=== PATIENT | male | born 1950 | race Caucasian/White ===

== ENCOUNTER 2019-05-18 17:13 | Observation (INO) | payer MEDICARE ==
[~2019-05-18] VITALS: Ht 185.4 cm; Wt 102.4 kg
--- NOTE | 2019-05-18 17:15 | NUR ---
This RN received report from ED Nurse at [facility].
[2019-05-18 20:11] VITALS: BP 117/75
[2019-05-18 20:13] VITALS: BP 117/75
[2019-05-18] MEDS ORDERED: ONDANSETRON 4 MG/2 ML (SDV) Z0FRAN IV PRN (20:45)
[2019-05-18] MEDS ORDERED: MELATONIN 3 MG TABLET PO PRN (20:45)
[2019-05-18] MEDS ORDERED: ANTACID SUSP 30 ML UDC (MYLANTA) PO PRN (20:45)
[2019-05-18] MEDS ORDERED: PATIENT MAY USE OWN MEDS, ALL MC SCH (20:45)
[2019-05-18] MEDS ORDERED: ACETAMINOPHEN 325 MG TABLET PO PRN (20:45)
[2019-05-18] MEDS: BENZONATATE 100 MG (TESSALON) CAPSULE PO PRN (21:34)
[2019-05-18 22:00] VITALS: BP 117/75
[2019-05-19] VITALS (7 sets, daily range): BP systolic 93–115; BP diastolic 52–66
[2019-05-19 06:43] LABS: HEMOGLOBIN 9.5 G/DL (13.3-17.7); MEAN PLATELET VOLUME 10.2 FL (7.4-10.4); RED CELL DISTRIBUTION WIDTH 14.5 % (10.0-14.5); WHITE BLOOD COUNT 5.4 10^3/uL (4.3-11.0)
[2019-05-19 06:51] LABS: INR 1.3 (0.8-1.4); PROTHROMBIN TIME PATIENT 16.4 SEC (12.2-14.7)
[2019-05-19 07:03] LABS: ALBUMIN 2.4 GM/DL (3.2-4.5); CALCIUM 8.2 MG/DL (8.5-10.1); CREATININE SERUM 1.74 MG/DL (0.60-1.30); POTASSIUM 4.2 MMOL/L (3.6-5.0); TOTAL PROTEIN 5.3 GM/DL (6.4-8.2)
[2019-05-19] MEDS ORDERED: REGADENOSON 0.4 MG/5 ML SYR (LEXISCAN) IV ONE (07:30)
[2019-05-19] MEDS ORDERED: OMEP40CA27 PO (10:03)
[2019-05-19] MEDS ORDERED: FOLI1TAB24 PO (10:03)
[2019-05-19] MEDS ORDERED: CARV6.252 PO (10:03)
[2019-05-19] MEDS ORDERED: LACT10SO PO (10:03)
[2019-05-19] MEDS ORDERED: ACET-2267 PO (10:03)
[2019-05-19] MEDS ORDERED: BUME1TAB8 PO (10:03)
[2019-05-19] MEDS ORDERED: SPIR50TA4 PO (10:03)
[2019-05-19] MEDS ORDERED: DIPH25TA65 PO (10:03)
--- NOTE | 2019-05-19 10:06 | NUR ---
SPOKE WITH THE PATIENT AND FAMILY ABOUT MEDICATIONS. THEY HAD A LIST AND I COMPARED IT WITH THE EXT MED HX. HIS COREG WAS FILLED 6.25MG BID #180 07-23-18 - HE STATES HE TAKES 1/2 TAB BID HOWEVER FAMILY STATES HE NORMALLY ONLY TAKES IT 1/2 TAB IN AM. HE IS PAST DUE FOR REFILL ON THE BUMEX 1MG FILLED #90 01-26-19 ACCORDING TO THE EXT MED HX BUT THEY STATE HE DOES HAVE IT AND IS TAKING IT DAILY. HE STATES HE HAS SUPPLIES BUILT UP FROM GETTING IT MAIL ORDER IN THE PAST. HE STATES HE IS NO LONGER TAKING THE VITAMIN D, IT WAS RECENTLY DISCONTINUED. OTC MEDS: TYLENOL 500MG 1-2 Q6H PRN BENADRYL 25MG 1/2 TO 1 HS PRN
--- NOTE | 2019-05-19 11:32 | History & Physical-Hospitalist ---
History of Present Illness HPI/Chief Complaint patient is 69-year-old male past medical history of end-stage liver disease, chronic kidney disease, coronary artery disease who presented to the emergency department at [facility] due to altered mental status. He is a rambling historian and cannot give exact details of his history but his and daughter are at bedside. Reportedly he had had a lesion removed from his nose last week and possibly another surgical intervention though I'm not sure. Ever since then he has had increasing confusion. His states that he would call people at all hours of the night and attempted to get up and go fishing in the middle of the night as well. He becomes very upset when she tries to reorient hi He has had similar episodes with high ammonia levels so he was brought to the emergency room for evaluation. His ammonia level was in the 40s yesterday. He was transferred here for further evaluation of altered mentation. This morning his states that he is closer to his baseline but is still not 100 percent. We did discuss goals of care and patient reports he knows curative options are not possible and he would like to focus on symptom management. We did discuss hospice but he declined. Source: patient Date Seen 05/19/19 Time Seen by a Provider: 11:27 Attending Physician Inés Tomlinson MD PCP Efraín Lombardi MD Referring Physician Date of Admission May 18, 2019 at 19:43 Home Medications & Allergies Home Medications Reviewed patient Home Medication Reconciliation performed by pharmacy medication reconciliations biomedical equipment technician and/or nursing. Patients Allergies have been reviewed. Allergies Allergies Coded Allergies No Known Drug Allergies (Unverified05/18/19) Past Ntroqte-Xepbam-Tlzvqu Hx Past Med/Social Hx: Reviewed Nursing Past Med/Soc Hx Patient Social History Marrital Status: Employed/Student: retired Alcohol Use: Denies Use Recreational Drug Use: No Smoking Status: Never a Smoker Physical Abuse Screen: No Sexual Abuse: No Recent Foreign Travel: No Contact w/other who traveled: No Recent Hopitalizations: Yes Recent Infectious Disease Expo: No Immunizations Up To Date Pediatric: No Date of Pneumonia Vaccine: May 19, 2017 Date of Influenza Vaccine: Feb 16, 2019 Seasonal Allergies Seasonal Allergies: No Past Medical History Cardiac: Coronary Artery Disease, Hypertension Genitourinary: Renal Failure Gastrointestinal: Liver Disease/Jaundice, Cirrhosis Family History Reviewed Nursing Family Hx No Pertinent Family Hx Review of Systems ROS-Unable to Obtain: limited by encephalopathy Constitutional: No chills, No fever EENTM: no symptoms reported Respiratory: short of breath (en route) Cardiovascular: no symptoms reported Gastrointestinal: jaundice, other (bloating) Genitourinary: decreased output Musculoskeletal: no symptoms reported Skin: no symptoms reported Psychiatric/Neurological: No Symptoms Reported Physical Exam Physical Exam Vital Signs Vital Signs - First Documented 05/18/19 20:11 Temp 37.1 Pulse 96 Resp 20 B/P (MAP) 117/75 (89) Pulse Ox 100 O2 Delivery Room Air Capillary Refill : Less Than 3 SecondsLess Than 3 Seconds Height, Weight, BMI Height: '" Weight: lbs. oz. kg; 29.79 BMI Method: General Appearance: No Apparent Distress, Chronically ill, Obese Respiratory: Lungs Clear, No Respiratory Distress Cardiovascular: Regular Rate, Rhythm, No Murmur Gastrointestinal: Normal Bowel Sounds, Non Tender, Soft, Distended; No Rebound, No Tenderness Neurologic/Psychiatric: Alert, Other Results Results/Procedures Labs Laboratory Tests 05/19/19 06:10 Patient resulted labs reviewed. Assessment/Plan Admission Diagnosis Hepatic Encephalopathy Admission Status: Observation Assessment and Plan Hepatic Encephalopathy ESLD Acute confusion likely due to poor metabolism of anesthesia and known liver disease Continue home meds Improving PT/OT Continue Lactulose Check Ammonia in AM Discussed goals of care and not yet ready for hospice but wants to concentrate on symptom management only Consider IRU for strengthening pending therapy eval Diagnosis/Problems Diagnosis/Problems (1) Hepatic encephalopathy Clinical Quality Measures DVT/VTE Risk/Contraindication: Risk Factor Score Per Nursin RFS Level Per Nursing on Admit: 3=High INÉS TOMLINSON MD May 19, 2019 11:32
--- NOTE | 2019-05-19 13:05 | NUR ---
CM/SS visited with patient for discharge planning. Plan: The patient will return home to [place] with . The family is wanting patient to be on hospice but the patient states he is not ready for that yet. The patient would like home health. A Patient Preference Form was provided to the family. They are choosing for CM/SS to send a referral to [facility]. CM/SS will fax over when medical records are completed.
[2019-05-19] MEDS: DICLOFENAC 1% GEL 100 GM (VOLTAREN) TUBE TOP SCH ×3 (13:10→20:19)
[2019-05-19] MEDS: SPIRONOLACTONE 25 MG (ALDACTONE) TAB PO SCH (13:10)
[2019-05-19] MEDS: LACTULOSE SYRUP 10GM/15ML (ENULOSE) 30ML UDC PO SCH (13:13)
--- NOTE | 2019-05-19 14:44 | Occupational Therapy Eval ---
OT Evaluation-General/PLF Medical Diagnosis Admission Date May 18, 2019 at 19:43 Medical Diagnosis: hepatic encephalopathy Onset Date: May 18, 2019 Therapy Diagnosis Therapy Diagnosis: debility Precautions Precautions/Isolations: Fall Prevention, Standard Precautions Referral Physician: Jae Medical History Pertinent Medical History: CAD, HTN, Renal Insufficiency Additional Medical History end-stage liver disease Current History Pt presented with AMS and hepatic encephalopathy Social History Home: Single Level Current Living Status: Spouse Entry Into Home: Stairs With Railing Steps Into Home: 2 ADL-Prior Level of Function SCALE: Activities may be completed with or without assistive devices. 0-Ydswwawcse-mvclbht completes the activity by him/herself with no assistance from a helper. 5-Set-up or Clean-up Assistance-helper sets up or cleans up; patient completes activity. Adell assists only prior to or following the activity. 4-Supervision or Touching Assistance-helper provides verbal cues and/or touching/steadying and/or contact guard assistance as patient completes activity. Assistance may be provided throughout the activity or intermittently. 3-Partial/Moderate Assistance-helper does LESS THAN HALF the effort. Adell lifts, holds or supports trunk or limbs, but provides less than half the effort. 2-Substantial/Maximal Assistance-helper does MORE THAN HALF the effort. Adell lifts or holds trunk or limbs and provides more than half the effort. 3-Yfybaswai-lgokjp does ALL the effort. Patient does none of the effort to complete the activity. Or, the assistance of 2 or more helpers is required for the patient to complete the activity. If activity was not attempted, code reason: 7-Patient Refused. 9-Not Applicable-not attempted and the patient did not perform the activity before the current illness, exacerbation or injury. 10-Not Attempted due to Environmental Limitations-(lack of equipment, weather restraints, etc.). 88-Not Attempted due to Medical Conditions or Safety Concerns. ADL PLOF Comments Pt reports being mostly independent with self care. Spouse states pt has had limited activity for the last year and spends a majority of the time in bed. DME/Equipment: Shower OT Current Status Subjective Pt in bed, agrees to treatment. Has no c/o pain. Mental Status/Objective Patient Orientation: Person Current Hand Dominance: Right Upper Extremity ROM Grossly WFL Upper Extremity Coordination intact Upper Extremity Sensation intact per pt report Upper Extremity Strength grossly4/5 ADL-Treatment ADL-Current Pt supine to sit without assist. Pt participated in UE assessment while seated. Pt requires assist to don slippers. Sit to stand and transfer to chair with SBA using cane, cues for safety. Education provided regarding role of therapy and plan of care. Pt states understanding of education and is in agreement with plan. Pt sitting in chair with needs met, spouse and daughter present after session. On/Off Footwear (QC): 2 Education OT Patient Education: Rehab process Teaching Recipient: Patient Teaching Methods: Discussion Response to Teaching: Verbalize Understanding, Reinforcement Needed OT Continuous Towel Roller Goals Continuous Towel Roller Goals Time Frame: May 26, 2019 Oral Hygiene (QC): 6 Toileting Hygiene (QC): 6 Shower/Bathe Self (QC): 5 Upper Body Dressing (QC): 6 Lower Body Dressing (QC): 5 On/Off Footwear (QC): 5 Additional Goals: 1-Demonstrate ADL Tasks, 2-Verbalize Understanding, 3- ImproveStrength/Kati 1=Demonstrate adherence to instructed precautions during ADL tasks. 2=Patient will verbalize/demonstrate understanding of assistive devices/modifications for ADL. 3=Patient will improve strength/tolerance for activity to enable patient to perform ADL's. OT Education/Plan Problem List/Assessment Pt to benefit from skilled OT intervention for ADL training, transfers, and safety education to increase functional independence and allow safe discharge home. Discharge Recommendations Plan/Recommendations: Continue POC Treatment Plan/Plan of Care Treatment,Training & Education: Yes Patient would benefit from OT for education, treatment and training to promote independence in ADL's, mobility, safety and/or upper extremity function for ADL's. Plan of Care: ADL Retraining, Functional Mobility, UE Funct Exercise/Act Treatment Duration: May 26, 2019 Frequency: 5 times per week Estimated Hrs Per Day: .25 hour per day Agreement: Yes Rehab Potential: Fair Time/GCodes Start Time: 14:10 Stop Time: 10:36 Total Time Billed (hr/min): 26 Billed Treatment Time 1 visit, NICOLÁS(26minutes) XIOMARA TOBIN OT May 19, 2019 14:44
--- NOTE | 2019-05-19 15:21 | Physical Therapy Evaluation ---
PT Evaluation-General Medical Diagnosis Admission Date May 18, 2019 at 19:43 Medical Diagnosis: hepatic encephalopathy Onset Date: May 18, 2019 Therapy Diagnosis Therapy Diagnosis: abn gait Precautions Precautions/Isolations: Fall Prevention, Standard Precautions Weight Bear Status Right Lower Extremity: Right Weight Bearing/Tolerated Left Lower Extremity: Left Weight Bearing/Tolerated Referral Physician: Jae Reason for Referral: Evaluation/Treatment Medical History Pertinent Medical History: CAD, HTN, Renal Insufficiency Additional Medical History chronic kidney disease, cirrhosis Current History Admitted to acute with hepatic encephalopathy; AMS Reviewed History: Yes Social History Home: Single Level Current Living Status: Spouse Entry Into Home: Stairs With Railing PT Steps Into Home: 2 Prior Prior Level of Function SCALE: Activities may be completed with or without assistive devices. 8-Helztzenqy-mzntiqr completes the activity by him/herself with no assistance from a helper. 5-Set-up or Clean-up Assistance-helper sets up or cleans up; patient completes activity. [place] assists only prior to or following the activity. 4-Supervision or Touching Assistance-helper provides verbal cues and/or touching/steadying and/or contact guard assistance as patient completes activity. Assistance may be provided throughout the activity or intermittently. 3-Partial/Moderate Assistance-helper does LESS THAN HALF the effort. [place] lifts, holds or supports trunk or limbs, but provides less than half the effort. 2-Substantial/Maximal Assistance-helper does MORE THAN HALF the effort. [place] lifts or holds trunk or limbs and provides more than half the effort. 4-Rvohvejeq-oaohks does ALL the effort. Patient does none of the effort to complete the activity. Or, the assistance of 2 or more helpers is required for the patient to complete the activity. If activity was not attempted, code reason: 7-Patient Refused. 9-Not Applicable-not attempted and the patient did not perform the activity before the current illness, exacerbation or injury. 10-Not Attempted due to Environmental Limitations-(lack of equipment, weather restraints, etc.). 88-Not Attempted due to Medical Conditions or Safety Concerns. Bed Mobility: 6 Transfers (B,C,W/C): 6 Gait: 6 (cane or FWW for ambulation) Indoor Mobility (Ambulation): Independent Stairs: Needed Some Help PT Evaluation-Current Subjective Pt agrees to PT. Talks throughout treatment, sometimes on topic, sometimes off. Objective Patient Orientation: Person, Confused (slightly), Place, Time, Situation ROM/Strength ROM Lower Extremities WFL Strength Lower Extremities grossly 4/5 Integumentary/Posture Integumentary refer to nursing notes. Bowel Incontinence: No Bladder Incontinence: No Posture normal and symmetrical Neuromuscular (Tone, Coordination, Reflexes) intact and functional Sensory Vision: Functional Hand Dominance: Right Sensation Right Lower Extremit: Intact Sensation Left Lower Extremity: Intact Transfers Roll Left to Right (QC): 4 Sit to Lying (QC): 4 Lying to Sitting/Side of Bed(Q: 4 Sit to Stand (QC): 4 Chair/Rvj-bt-Iasbw Xfer(QC): 4 Gait Does the Patient Walk?: Yes Walk 10 feet (QC): 4 Walk 50 ft with 2 Turns(QC): 4 Distance: 125 ft with FWW with CGA Comments/Gait Description slow gait with cues for safety; no hayes LOB noted. Balance Sitting Static: Good Sitting Dynamic: Good Standing Static: Fair Standing Dynamic: Fair Treatment Functional gait training in his room and allen. Education on safety and use of FWw. Assessment/Needs Pt presents with decreased functional safety and decreased mobility due to recent hospital stay. He will benefit from skilled PT while he is here to address strength and mobility to allow him to return home safely. Rehab Potential: Good PT Fpc Goals Mailroom Courier Goals PT Fpc Goals Time Frame: May 26, 2019 Roll Left & Right (QC): 6 Sit to Lying (QC): 6 Lying-Sitting on Side/Bed(QC): 6 Sit to Stand (QC): 6 Chair/Nug-xe-Pkuso Xfer(QC): 6 Walk 10 feet (QC): 6 Walk 50ft with 2 Turns (QC): 6 Walk 150 ft (QC): 6 PT Plan Problem List Problem List: Activity Tolerance, Functional Strength, Safety, Balance, Gait, Transfer, Bed Mobility Treatment/Plan Treatment Plan: Continue Plan of Care Treatment Plan: Bed Mobility, Education, Functional Activity Kati, Functional Strength, Gait, Safety, Therapeutic Exercise Treatment Duration: May 26, 2019 Frequency: 6 times per week Estimated Hrs Per Day: .5 hour per day Patient and/or Family Agrees t: Yes Safety Risks/Education Patient Education: Safety Issues Teaching Recipient: Patient Teaching Methods: Discussion Response to Teaching: Reinforcement Needed Time/GCodes Time In: 1440 Time Out: 1505 Total Billed Treatment Time: 25 Total Billed Treatment visit EVM 15 GT 10 RDODY HAMPTON PT May 19, 2019 15:21
[2019-05-19] MEDS: BENZONATATE 100 MG (TESSALON) CAPSULE PO PRN (16:05)
[2019-05-19] MEDS: CARVEDILOL 6.25 MG (COREG) TAB PO SCH (20:18)
[2019-05-20 04:00] VITALS: BP 117/68
[2019-05-20 05:58] LABS: HEMOGLOBIN 9.6 G/DL (13.3-17.7); MEAN PLATELET VOLUME 10.6 FL (7.4-10.4); RED CELL DISTRIBUTION WIDTH 14.1 % (10.0-14.5); WHITE BLOOD COUNT 5.5 10^3/uL (4.3-11.0)
[2019-05-20 06:28] LABS: CREATININE SERUM 1.63 MG/DL (0.60-1.30); POTASSIUM 4.3 MMOL/L (3.6-5.0)
[2019-05-20 08:00] VITALS: BP 98/72
[2019-05-20] MEDS ORDERED: FOLIC ACID 1 MG TAB PO SCH (09:00)
[2019-05-20] MEDS ORDERED: BUMETANIDE 1 MG (BUMEX) TAB PO SCH (09:00)
[2019-05-20] MEDS ORDERED: PANTOPRAZOLE 40 MG (PROTONIX) TAB PO SCH (09:00)
--- NOTE | 2019-05-20 09:47 | Discharge Inst-Simple/Standard ---
Discharge Inst-Standard Reconcile Patient Problems Problems Reviewed?: Yes Patient Instructions/Follow Up Plan of Care/Instructions/FU: Continue to take her medications as written. Please follow up with her primary care physician within the next week. Please continue to work with home health. Activity as Tolerated: Yes Discharge Diet: Low Sodium Diet Return to The Hospital For: Confusion, fever, abdominal pain, if you feel you are getting worse. SYEDA TOMLINSON MD May 20, 2019 09:47
--- NOTE | 2019-05-20 09:48 | Discharge Summary ---
Diagnosis/Chief Complaint Date of Admission May 18, 2019 at 19:43 Date of Discharge Discharge Date: May 20, 2019 Admission Diagnosis Hepatic Encephalopathy Primary Care Efraín Lombardi MD Discharge Diagnosis (1) Hepatic encephalopathy Discharge Summary Discharge Physical Exam Allergies: Coded Allergies: No Known Drug Allergies (Unverified , 05/18/19) Vitals & I&Os Vital Signs Date Time Temp Pulse Resp B/P (MAP) Pulse Ox O2 Delivery O2 Flow Rate FiO2 05/20/19 11:45 36.6 65 20 98/72 95 Room Air General Appearance: No Apparent Distress, Chronically ill Cardiovascular: Regular Rate, Rhythm, No Murmur Gastrointestinal: Normal Bowel Sounds, Non Tender, Soft, Distended Neurologic/Psychiatric: Alert, Oriented x3 Hospital Course 69-year-old male with past medical history of end-stage liver disease who was admitted due to acute encephalopathy. This is likely multifactorial from his baseline hepatic encephalopathy as his ammonia level was 47. He had also recently had anesthesia for surgical removal of a lesion on his nose and this likely compounded with his baseline hepatic encephalopathy. He was observed overnight and mentation improved. He was given his lactulose and hem/bowel movements. Discussions were had about discharge planning regarding [facility], inpatient rehabilitation, and home with home health and family elected to return home with home health. He is to follow-up with his primary care physician Dr. Lombardi. I did discuss the option of palliative care and hospice as well but the patient was not ready for this at this time. Labs (last 24 hrs) Laboratory Tests 05/20/19 05:48: White Blood Count 5.5, Red Blood Count 3.03L, Hemoglobin 9.6L, Hematocrit 29L, Mean Corpuscular Volume 95, Mean Corpuscular Hemoglobin 32, Mean Corpuscular Hemoglobin Concent 33, Red Cell Distribution Width 14.1, Platelet Count 163, Bobbi n Platelet Volume 10.6H, Sodium Level 135, Potassium Level 4.3, Chloride Level 106, Carbon Dioxide Level 19L, Anion Gap 10, Blood Urea Nitrogen 32H, Creatinine 1.63H, Estimat Glomerular Filtration Rate 42, BUN/Creatinine Ratio 20, Glucose Level 113H, Calcium Level 8.0L, Ammonia 47H Patient resulted labs reviewed. Pending Labs Discussion & Recommendations Discharge Planning: >30 minutes discharge planning Discharge Home Medications: Active Scripts Active Reported Spironolactone 50 Mg Tablet 50 Mg PO DAILY Omeprazole 40 Mg Capsule.dr 40 Mg PO DAILY Lactulose 10 Gm/15 Ml Solution 30 Ml PO DAILY Folic Acid 1 Mg Tablet 1 Mg PO DAILY Benadryl Allergy (Diphenhydramine HCl) 25 Mg Tablet 12.5-25 Mg PO HS PRN Carvedilol 6.25 Mg Tablet 3.125 Tab PO BID FREQUENTLY MISSES EVENING DOSE Bumetanide 1 Mg Tablet 1 Mg PO DAILY Tylenol Extra Strength (Acetaminophen) 500 Mg Tablet 500-1,000 Mg PO Q6H PRN Instructions to patient/family Please see electronic discharge instructions given to patient. Clinical Quality Measures DVT/VTE Risk/Contraindication: Risk Factor Score Per Nursin RFS Level Per Nursing on Admit: 3=High Copy Copies To 1: SYEDA Romero MD May 20, 2019 09:48
[2019-05-20] MEDS: SPIRONOLACTONE 25 MG (ALDACTONE) TAB PO SCH (10:10)
--- NOTE | 2019-05-20 10:10 | NUR ---
CM/SS to follow up for discharge planning. Plan: The patient and spouse wanted [facility] for their home health agency after looking over the patient preference form. CM/SS faxed a referral ([phone]). CM/SS informed patient that the referral had been made. They verbalized understanding. The patients spouse gave SS her cell number at ([phone]). No other needs at this time.
[2019-05-20] MEDS: LACTULOSE SYRUP 10GM/15ML (ENULOSE) 30ML UDC PO SCH (10:11)
[2019-05-20] MEDS: CARVEDILOL 6.25 MG (COREG) TAB PO SCH (10:11)
[2019-05-20] MEDS: DICLOFENAC 1% GEL 100 GM (VOLTAREN) TUBE TOP SCH (10:13)
--- NOTE | 2019-05-20 11:27 | D/C HH Face to Face Order ---
D/C Face to Face Orders Instructions for Patient Via [facility], Patient Instructions/FollowUp: Please continue to take your medications as written. Please follow up with your PCP in the next week to follow up this hospital stay. Physician to follow Patient: Dr Lombardi Discharge Diet for Home: Low Sodium Diet Patient Data-Allergies,Ht & Wt Patient Allergies: Coded Allergies: No Known Drug Allergies (Unverified , 05/18/19) Home Health Need/Face to Face Date of Face to Face: May 20, 2019 Clinical Findings: Instability I have seen Pt menb-fk-fzxu: Yes Discharged To: Home Diagnosis/Conditions: hepatic encephalopathy Patient is Homebound due to: Ariela fall risk due to instabilty Homebound Status Due to the above stated illness, injury or surgical procedure (medical condition or diagnosis) and associated clinical findings, the patient is homebound because of his/her inability to leave home except with aid of a supp ortive device and/or person AND leaving the home requires a considerable and taxing effort or is medically contraindicated. Pt req the following assistanc: Aid of another person, Walker Home Health Nursing Orders Home Health Services Order: Nursing Services, Vegetable Preparer-Evaluate & Treat, Physical Therapy-Evaluate & Treat Therapy Orders Therapy Orders: OT (must have SN or PT order), Physical Therapy Therapy Specific Orders: Eval assistive deivces, Teach enviro modifications/safety, Gait training, Increase strength/endurance Certify Stmt I certify that this patient is under my care and that I, a nurse practitioner or a physician; a surgeon assistant working with me, had a face to face encounter that - meets the physician face to face encounter requirements with this patient as dated. SYEDA TOMLINSON MD May 20, 2019 11:27
[2019-05-20 11:45] VITALS: BP 98/72
--- NOTE | 2019-05-20 11:47 | Occupational Ther Daily Note ---
OT Current Status-Daily Note Subjective Pt laying in bed at start of session, stating he should be discharging later today. He agreed to OT tx with focus on BUE exercises. ADL-Treatment Therapy Code Descriptions/Definitions Functional [place] Measure: 0=Not Assessed/NA 4=Minimal Assistance 1=Total Assistance 5=Supervision or Setup 2=Maximal Assistance 6=Modified [place] 3=Moderate Assistance 7=Complete IndependenceSCALE: Activities may be completed with or without assistive devices. 6-[id number]-[id number] completes the activity by him/herself with no assistance from a helper. 5-Set-up or Clean-up Assistance-helper sets up or cleans up; patient completes activity. [place] assists only prior to or following the activity. 4-Supervision or Touching Assistance-helper provides verbal cues and/or touching/steadying and/or contact guard assistance as patient completes activity. Assistance may be provided throughout the activity or intermittently. 3-Partial/Moderate Assistance-helper does LESS THAN HALF the effort. [place] lifts, holds or supports trunk or limbs, but provides less than half the effort. 2-Substantial/Maximal Assistance-helper does MORE THAN HALF the effort. [place] lifts or holds trunk or limbs and provides more than half the effort. 3-Ripqtmrdh-zyaoht does ALL the effort. Patient does none of the effort to complete the activity. Or, the assistance of 2 or more helpers is required for the patient to complete the activity. If activity was not attempted, code reason: 7-Patient Refused. 9-Not Applicable-not attempted and the patient did not perform the activity before the current illness, exacerbation or injury. 10-Not Attempted due to Environmental Limitations-(lack of equipment, weather restraints, etc.). 88-Not Attempted due to Medical Conditions or Safety Concerns. Other Treatment Pt feels like his arms are weaker than they used to be. OT educated pt on the importance of completing UE exercises to increase strength. Pt performed x15 reps each BUE exercises at bed level. He completed shoulder flexion and elbow flexion against gravity. Pt educated on completing UE exercises throughout the day. Pt verbalized understanding. OT educated pt on safety techniques within the home. He talked about how he should be leaving today, stating he had no further questions for OT at this time. Post OT session, pt laying in bed with call light in reach and needs met. Education OT Patient Education: Correct positioning, Energy conservation, Exercise program, Modified ADL techniques, Progress toward Goal/Update tx plan, Purpose of tx/functional activities, Safety issues Teaching Recipient: Patient Teaching Methods: Discussion Response to Teaching: Verbalize Understanding OT Overhead Crane Operator Goals Detention Goals Time Frame: May 26, 2019 Oral Hygiene (QC): 6 Toileting Hygiene (QC): 6 Shower/Bathe Self (QC): 5 Upper Body Dressing (QC): 6 Lower Body Dressing (QC): 5 On/Off Footwear (QC): 5 Additional Goals: 1-Demonstrate ADL Tasks, 2-Verbalize Understanding, 3- ImproveStrength/Kati 1=Demonstrate adherence to instructed precautions during ADL tasks. 2=Patient will verbalize/demonstrate understanding of assistive devices/modifications for ADL. 3=Patient will improve strength/tolerance for activity to enable patient to perform ADL's. OT Education/Plan Problem List/Assessment Assessment: Decreased Activ Tolerance, Decreased UE Strength, Impaired I ADL's, Impaired Self-Care Skills Pt to benefit from skilled OT intervention for ADL training, transfers, and safety education to increase functional independence and allow safe discharge home. Discharge Recommendations Plan/Recommendations: Continue POC Treatment Plan/Plan of Care Patient would benefit from OT for education, treatment and training to promote independence in ADL's, mobility, safety and/or upper extremity function for ADL's. Plan of Care: ADL Retraining, Functional Mobility, UE Funct Exercise/Act Treatment Duration: May 26, 2019 Frequency: 5 times per week Estimated Hrs Per Day: .25 hour per day Agreement: Yes Rehab Potential: Good Time/GCodes Start Time: 08:50 Stop Time: 09:03 Total Time Billed (hr/min): 13 Billed Treatment Time 1, EX ALIYAH SUAREZ OT May 20, 2019 11:47
== END 2019-05-20 11:45 | disposition home health service (06) ==
LOC: 4TH 19:43
PROVIDERS: ADMIT Family Medicine; ATTEND Family Medicine
DX: K72.90 Hepatic failure, unspecified without coma (principal); N18.6 End stage renal disease; K74.60 Unspecified cirrhosis of liver; I25.10 Atherosclerotic heart disease of native coronary artery without angina pectoris; I12.0 Hypertensive chronic kidney disease with stage 5 chronic kidney disease or end stage renal disease; R41.82 Altered mental status, unspecified; Z79.899 Other long term (current) drug therapy
CPT/HCPCS: 36415; 80048; 80053; 82140; 85027; 85610; 93306; 99211; G0378